=== PATIENT | male | born 1965 | race Caucasian/White ===

== ENCOUNTER 2018-10-24 09:40 | Day surgery (SDC) | payer BC ==
[2018-10-19 12:35] VITALS: BMI 30.1
[2018-10-24] MEDS ORDERED: ACETAMINOPHEN 325 MG TABLET (FP) ONE (10:15)
[2018-10-24] MEDS ORDERED: ONDANSETRON 4 MG/2 ML VIAL ONE (10:43)
[2018-10-24] MEDS ORDERED: DEXAMETHASONE SOD PHOSPHATE 4 MG/1 ML VIAL ONE (10:43)
[2018-10-24] MEDS ORDERED: PROPOFOL 20 ML ONE (10:44)
[2018-10-24] MEDS ORDERED: LIDOCAINE HCL/PF 2% SDV 5ML VIAL ONE (10:44)
[2018-10-24] MEDS ORDERED: MIDAZOLAM HCL 2 MG/2 ML SINGLE DOSE VIAL ONE (10:44)
[2018-10-24] MEDS ORDERED: BUPIVACAINE HCL/PF 0.5% (5MG/ML) 10 ML VIAL ONE (11:18)
[2018-10-24] MEDS ORDERED: GUM MASTIC/STORAX/MSAL/ALCOHOL 1 DRP DROPSBTL MC ONE (11:18)
[2018-10-24] MEDS ORDERED: ONDANSETRON 4 MG/2 ML VIAL IVPUSH PRN (11:42)
[2018-10-24] MEDS ORDERED: oxyCODONE HCL 5 MG TABLET PO PRN (11:42)
[2018-10-24] MEDS ORDERED: LACTATED RINGERS SOLUTION 1,000 ML IV SCH (11:45)
[2018-10-24 12:27] VITALS: TEMP 97.4
[2018-10-24 13:00] VITALS: BP 130/82; PULSE 76
--- NOTE | 2018-10-25 13:03 | HP ---
DATE OF ADMISSION: 10/24/2018 PREOPERATIVE DIAGNOSIS: Left carpal tunnel syndrome. POSTOPERATIVE DIAGNOSES: Left carpal tunnel syndrome. OPERATIVE PROCEDURE: Left endoscopic carpal tunnel release. SURGEON: Power Llamas MD ANESTHESIA: General. COMPLICATIONS: None. ESTIMATED BLOOD LOSS: Minimal. INDICATION FOR PROCEDURE: Patient is a 52-year-old male with the above finding, indicated for operative treatment. The risks, benefits and alternatives were discussed with the patient at length and proper informed consent was obtained. DESCRIPTION OF PROCEDURE: After proper identification of the patient and the correct operative site, the patient was brought to the operating room and placed supine on the operating table with all prominences well padded. General anesthesia was provided by the anesthesiologist. The left upper extremity was prepped and draped in the usual sterile fashion. A well-padded tourniquet was placed over the sterile prep. An Esmarch bandage was used to exsanguinate the left upper extremity. The tourniquet was inflated to 250 mmHg. A transverse incision was made over the proximal wrist crease. The incision was taken sharply through the skin with blunt and sharp dissection through subcutaneous tissues. The antebrachial fascia was divided and the carpal canal was entered with an elevator. Soft tissue was elevated off the undersurface of the transverse carpal ligament. Hamate finder dilators were then used to prepare the canal and the MicroAire Endoscopic Carpal Tunnel Release System was used and advanced to the distal edge of the transverse carpal ligament, which was positively identified both visually as well as palpably. The blade was then deployed and the transverse carpal ligament was divided. Under direct mini-open approach, the distal 4 cm of the antebrachial fascia were divided under loupe magnification. This provided complete release of the median nerve at the wrist. The wound was irrigated with saline and repaired with 4-0 Monocryl suture. Sterile dressings were applied. The patient was reversed from anesthesia and brought to the recovery room in stable condition. He tolerated the procedure well. POWER LLAMAS M.D. [id number]
== END 2018-10-24 13:03 | disposition home or self-care (01) ==
LOC: FASU 09:40
PROVIDERS: ATTEND Orthopaedic Surgery Hand Surgery
PROC: 01N54ZZ Release Median Nerve, Percutaneous Endoscopic Approach (ICD-10-PCS; principal; 2018-10-24 11:17)
DX: G56.02 Carpal tunnel syndrome, left upper limb (principal)
CPT/HCPCS: 94760

== ENCOUNTER 2022-09-07 07:58 | Day surgery (SDC) | payer BC ==
[2022-08-30 11:41] VITALS: BMI 30.1
[2022-09-07] MEDS ORDERED: PROPOFOL 20 ML ONE (08:05)
[2022-09-07] MEDS ORDERED: MIDAZOLAM HCL 2 MG/2 ML SINGLE DOSE VIAL ONE (08:05)
[2022-09-07] MEDS ORDERED: BUPIVACAINE HCL/PF 2.5 MG/ML - 30 ML VIAL IJ ONE (08:11)
[2022-09-07] MEDS ORDERED: ONDANSETRON 4 MG/2 ML VIAL ONE (08:43)
[2022-09-07] MEDS ORDERED: DEXAMETHASONE SOD PHOSPHATE 4 MG/1 ML VIAL ONE (08:43)
[2022-09-07] MEDS ORDERED: ceFAZolin SODIUM 1 GM VIAL ONE ×2 (08:43)
[2022-09-07] MEDS ORDERED: ONDANSETRON 4 MG/2 ML VIAL IVPUSH PRN (09:11)
[2022-09-07] MEDS ORDERED: oxyCODONE HCL 5 MG TABLET PO PRN (09:11)
[2022-09-07] MEDS ORDERED: ACETAMINOPHEN 325 MG TABLET (FP) PO PRN (09:11)
[2022-09-07] MEDS ORDERED: LACTATED RINGERS SOLUTION 1,000 ML IV SCH (09:15)
[2022-09-07 09:48] VITALS: RESP 18; TEMP 97.8
[2022-09-07 10:11] VITALS: BP 135/71; PULSE 78
== END 2022-09-07 10:15 | disposition home or self-care (01) ==
LOC: FASU 07:58
PROVIDERS: ATTEND Orthopaedic Surgery Hand Surgery
PROC: 01N54ZZ Release Median Nerve, Percutaneous Endoscopic Approach (ICD-10-PCS; principal; 2022-09-07 08:49)
DX: G56.01 Carpal tunnel syndrome, right upper limb (principal)
CPT/HCPCS: 94760